=== PATIENT | male | born 1975 | race African-American/Black ===

== ENCOUNTER 2024-04-07 08:13 | Outpatient (CLI) | payer OTHER, SELFPAY ==
--- NOTE | ~2024-04-07 | XR_ITS ---
XR cervical spine 4-5V Ordering provider: Osiris Day, IDENTIFICATION AND RECORDS COMMANDER History: . Cervical pain . Comparison: None. FINDINGS: VERTEBRAL BODIES: Normal height and alignment. No visible fracture or subluxation. The dens is intact . DISK SPACES: Well maintained. PARASPINOUS SOFT TISSUES: No prevertebral soft tissue swelling. IMPRESSION: No acute osseous abnormality cervical spine. Reviewed, dictated and finalized at location A.
--- NOTE | ~2024-04-07 | XR_ITS ---
XR hip LT min 2V Ordering provider: Osiris Day, VERSE WRITER History: . L hip pain . Comparison: None. FINDINGS: BONES: Small bony fragment is seen near to the acetabulum which may indicate soft tissue ossification or acute fracture. Clinical correlation for tenderness in the area advised. Otherwise, No acute frac ture or dislocation. HIP JOINT SPACES: Normal. SACROILIAC JOINT SPACES/LUMBAR SPINE: The sacroiliac joint spaces are normal. Mild degenerative swenson es of the visualized lower lumbar spine. PUBIC SYMPHYSIS: Pubic symphysitis. SOFT TISSUES: Normal. IMPRESSION: Small bony fragment near to the acetabulum which may be soft tissues ossification or acute fracture. Otherwise, No definite acute osseous abnormality pelvis and left hip. Pubic symphysitis. Reviewed, dictated and finalized at location A. IMPRESSION: Small bony fragment near to the acetabulum which may be soft tissues ossificati on or acute fracture. Otherwise, No definite acute osseous abnormality pelvis a nd left hip. Pubic symphysitis.
== END 2024-04-07 08:14 ==
PROVIDERS: PCP Nurse Practitioner Family; Visit Provider Nurse Practitioner Family
DX: M25.552 Pain in left hip (principal); M54.2 Cervicalgia
CPT/HCPCS: 72050; 73502

== ENCOUNTER 2024-08-30 00:17 | Day surgery (SDC) | payer OTHER, SELFPAY ==
[2024-08-18 12:13] VITALS: BMI 32.4
[2024-08-30 06:48] VITALS: BP 116/71; PULSE 68; RESP 16; TEMP 35.9; O2SAT 100; BMI 31.6
[2024-08-30] MEDS: LACTATED RINGERS 1,000 ML 150 ML IV CONT (07:17)
--- NOTE | 2024-08-30 07:28 | WPDANESEPPF ---
Anes - Initial Pre Proc Eval Procedure: Operation Date: 08/30/24 08:00 Proposed Procedures p Screening Colonoscopy - Scott Mims MD Date/Time: 08/30/24 07:28 Surgeon: Scott Mims MD Pre Op Diagnosis: screening colon Patient Data Age: 48 Gender: M Height: 1.7 m Weight: 91.6 kg Last Vital Signs Temp 96.6 F L 08/30/24 06:48 Pulse 68 08/30/24 06:48 Resp 16 08/30/24 06:48 BP 116/71 08/30/24 06:48 Pulse Ox 100 08/30/24 06:48 O2 Del Method Room Air 08/30/24 06:48 Allergies Allergy/AdvReac Type Severity Reaction Status Date / Time Penicillins AdvReac Hives Verified 08/30/24 06:55 Home Medications Medication Instructions Recorded Confirmed Type ibuprofen 800 mg tablet 800 mg PO Q8H PRN Pain 08/18/24 08/30/24 History Patient hx anesthesia problems: none Family hx anesthesia problems: none Results Review: All pre-operative results and documents have been reviewed as part of the pre-operative evaluation. [facility] Social History Social History Smoking status: Light tobacco smoker Tobacco type: cigars Alcohol intake: never Substance use: never Substance use type: does not use Living arrangements: with family Spiritual care concerns: No Anes - Eval Final PreProcedure Day of Procedure 08/30/24 07:28 Patient weight: normal Heart: regular rate and rhythm Lungs: clear to auscultation Airway: Mallampati scale and special considerations (Missing upper right tooth. ) Neurological: alert and oriented Last oral intake: >/= 8 hours ASA classification: II Emergent: no Anesthetic plan: proceed Anesthesia type and monitoring: general GIVS and standard monitoring Results Review: All pre-operative results and documents have been reviewed as part of the pre-operative evaluation. Cigar smoker. 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 Informed Consent: The patient's anesthetic plan and its attendant risks and benefits were discussed with the patient/family/POA. Questions were solicited and answers provided to the satisfaction of the patient/family/POA.
--- NOTE | 2024-08-30 08:05 | PM.IMHP ---
H&P: HPI History of Present Illness Date/Time: 08/30/24 08:05 Chief Complaint: Screening colonoscopy Narrative: This is the patient's first colonoscopy. There are no GI symptoms and there is no family history of colorectal cancer. Review of Systems Review of Systems: All systems reviewed & are unremarkable except as noted in HPI and below [facility] Social History Social History Smoking status: Light tobacco smoker Tobacco type: cigars Alcohol intake: never Substance use: never Substance use type: does not use Living arrangements: with family Spiritual care concerns: No Meds Home Medications and Allergies Home Medications Medication Instructions Recorded Confirmed Type ibuprofen 800 mg tablet 800 mg PO Q8H PRN Pain 08/18/24 08/30/24 History Allergies Allergy/AdvReac Type Severity Reaction Status Date / Time Penicillins AdvReac Hives Verified 08/30/24 06:55 Vital Signs Vital Signs - 24 hr 08/30/24 06:48 Temperature 96.6 F L Pulse Rate 68 Respiratory Rate 16 Blood Pressure 116/71 Pulse Oximetry 100 Oxygen Delivery Room Air Exam Const: General: cooperative and healthy appearing Resp: Effort & Inspection: normal respiratory effort and able to speak in complete sentences Auscultation: clear to auscultation bilaterally Cardio: Rate: regular rate Rhythm: regular rhythm GI: Inspection: normal to inspection GI Palp: No No hepatosplenomegaly present Auscultation: normal bowel sounds Rectal Exam: deferred Skin: General skin exam: normal color Psych: Appearance: grossly normal Mental Status: mental status grossly normal Assessment and Plan Assessment and plan (1) Screening for malignant neoplasm of colon: Code(s): Z12.11 - Encounter for screening for malignant neoplasm of colon Status: Acute Assessment and Plan: The patient is deemed a good candidate for the procedure. Consent signed. Will proceed.
[2024-08-30 08:34] VITALS: BP 93/63; PULSE 61; RESP 16; O2SAT 100
[2024-08-30 08:44] VITALS: BP 90/60; PULSE 62; RESP 18; O2SAT 98
[2024-08-30 08:54] VITALS: BP 118/71; PULSE 70; RESP 18; O2SAT 98
[2024-08-30 09:02] VITALS: BP 117/83; PULSE 60; RESP 18; O2SAT 100
== END 2024-08-30 09:12 | disposition home or self-care (01) ==
PROVIDERS: PCP Nurse Practitioner Family; Visit Provider Internal Medicine Gastroenterology
PROC: 0DJD8ZZ Inspection of Lower Intestinal Tract, Via Natural or Artificial Opening Endoscopic (ICD-10-PCS; CPT 45378; principal; 2024-08-30 08:00)
DX: Z12.11 Encounter for screening for malignant neoplasm of colon (principal); Z72.0 Tobacco use
CPT/HCPCS: 45378; J2003; J2704; J7120